=== PATIENT | male | born 1950 | race Caucasian/White ===

== ENCOUNTER 2017-01-24 17:04 | Emergency (ER) | payer MEDICARE, OTHER ==
[~2017-01-24] VITALS: Ht 172.7 cm; Wt 72.0 kg
[~2017-01-24 17:04] MED LIST: FEXO60TA PO; IMIT50TA PO; NAPR500 PO; PRED20 PO; PROT40TA PO; SAWPALMETTO; SUCR1TAB6 PO; [UNRECOGNIZED DRUG - OTHER]
[2017-01-24 17:12] VITALS: BP 145/90; PULSE 62; RESP 16; TEMP 97.7; O2SAT 97
[2017-01-24] MEDS ORDERED: OXYMETAZOLINE HCL 0.05% 15 ML NASAL SPRAY NASAL ONE (17:30)
--- NOTE | 2017-01-24 17:36 | PD ---
HPI Chief Complaint: Nosebleed Time Seen by Provider: 17:21 Travel History International Travel<30 days: No Contact w/Intl Traveler<30days: No Traveled to known affect area: No History of Present Illness HPI Patient is a 66-year-old male who comes in with a nosebleed. He had sinus surgery performed yesterday, and says he was fine until noon today when he started bleeding. He says he blew his nose and not swollen he started to bleed. He says it was a small amount of blood, but it would not stop. He denies feeling any blood in the back of his throat. He denies any difficulty breathing. He denies any other trauma to his nose. PFSH Past Medical History Diminished Hearing: No GERD: Yes Headaches: Yes Migraines: Yes Past Surgical History Genitourinary Surgery: Yes (STENT KIDNEY) Social History Alcohol Use: No Tobacco Use: Yes (07/07 PPD) Substance Use: No Allergies-Medications (Allergen,Severity, Reaction): Coded Allergies: No Known Allergies (Verified , 01/24/17) Reported Meds & Prescriptions Reported Meds & Active Scripts Active Deltasone (Prednisone) 20 Mg Tab 20 Mg PO BID Reported Aspirin Low Dose (Aspirin) 81 Mg Chew 81 Mg CHEW DAILY Methylprednisolone Dosepak (Methylprednisolone) 4 Dspk 4 Mg PO DIRECTED Per Pharmacist Direction Cialis (Tadalafil) 2.5 Mg Tab 2.5 Mg PO DAILY Do not exceed 1 dose/day. Lansoprazole 30 Mg Capdr 30 Mg PO DAILY Allergy Relief (Loratadine) 10 Mg Tab 10 Mg PO DAILY Naproxen 500 Mg Tab 500 Mg PO BID Carafate (Sucralfate) 1 Gm Tab 1 Gm PO TID On empty stomach Sumatriptan (Sumatriptan Succinate) 50 Mg Tab 50 Mg PO ONCE PRN If a satisfactory response has not been obtained at 2 hours, a second dose may be administered Beconase Aq Nasal (Beclomethasone Dipropionate) 42 Mcg/[facility] Susp 1 [facility] NASAL BID To each nostril. Ventolin Hfa 18 GM Inh (Albuterol Sulfate) 90 Mcg/Act Aer 2 Puff INH Q4-6H PRN [[place]] 0 [Sawpalmetto] 0 Carafate (Sucralfate) 1 Gm Tab 1 Gm PO DIRECTED Protonix (Pantoprazole Sodium) 40 Mg Tabdr 40 Mg PO BID Justyna (Fexofenadine HCl) 60 Mg Tab 60 Mg PO BID Imitrex (Sumatriptan Succinate) 50 Mg Tab 50 Mg PO DIRECTED PRN Naprosyn (Naproxen) 500 Mg Tab 500 Mg PO DAILY Review of Systems General / Constitutional: No: Fever, Chills Eyes: No: Blurred Vision HENT: Positive: Nosebleed, No: Headaches, Lightheadedness Cardiovascular: No: Chest Pain or Discomfort Respiratory: No: Shortness of Breath Gastrointestinal: No: Nausea, Vomiting Skin: No Change in Pigmentation Neurologic: No: Weakness, Dizziness Physical Exam Narrative GENERAL: Awake and alert, in no acute distress. SKIN: Focused skin assessment warm/dry. HEAD: Atraumatic. Normocephalic. EYES: Pupils equal and round. No scleral icterus. ENT: Mucous membranes pink and moist. Slow bleeding from the medial side of the left knee nostril, anteriorly. NECK: Trachea midline. No JVD. CARDIOVASCULAR: Regular rate and rhythm. No murmur appreciated. RESPIRATORY: No accessory muscle use. Clear to auscultation. Breath sounds equal bilaterally. NEUROLOGICAL: Awake and alert. No obvious cranial nerve deficits. Motor grossly within normal limits. Normal speech. Data Data Last Documented VS Vital Signs Date Time Temp Pulse Resp B/P Pulse Ox O2 Delivery O2 Flow Rate FiO2 01/24/17 19:00 60 16 160/95 98 Room Air 01/24/17 17:12 97.7 Orders Oxymetazoline 0.05% R[facility]ad [facility] (Afrin 0.0 (01/24/17 17:30) MDM Medical Decision Making Medical Screen Exam Complete: Yes Emergency Medical Condition: Yes Medical Record Reviewed: Yes Differential Diagnosis Nose bleed versus surgical complication versus nasal trauma Narrative Course Patient is a 66-year-old male comes in complaining of a nosebleed. Exam shows slow bleeding from the anterior portion of the left nostril. Direct pressure applied. Given Afrin. Observed until bleeding has stopped. Advised follow-up with his surgeon. Advised not to blow his nose for at least 24 hours. Advised what to do if it starts bleeding again. Advised to return as needed for any worsening symptoms. Diagnosis Primary Impression: Nasal bleeding Patient Instructions: General Instructions, Nosebleed (ED) Additional Instructions: Do not blow your nose for at least 24 hours. Follow-up with your surgeon. If you nose starts bleeding again, apply ice and direct pressure. Return as needed for any worsening symptoms. Disposition: 01 DISCHARGE HOME Condition: Stable Jahaira Holguin MD Jan 24, 2017 17:35
[2017-01-24] MEDS ORDERED: CIAL2.5T PO (17:45)
[2017-01-24] MEDS ORDERED: ASPI81CH37 CHEW (17:45)
[2017-01-24] MEDS ORDERED: CARA1TAB6 PO (17:45)
[2017-01-24] MEDS ORDERED: BECL.042%I NASAL (17:45)
[2017-01-24] MEDS ORDERED: METH4PAK PO (17:45)
[2017-01-24] MEDS ORDERED: NAPR500T PO (17:45)
[2017-01-24] MEDS ORDERED: ALLE10TA PO (17:45)
[2017-01-24] MEDS ORDERED: SUMA50TA2 PO (17:45)
[2017-01-24] MEDS ORDERED: LANS30CA PO (17:45)
[2017-01-24] MEDS ORDERED: VENTAER INH (17:45)
[2017-01-24 19:00] VITALS: BP 160/95; PULSE 60; RESP 16; O2SAT 98
[2017-01-24 19:38] VITALS: BP 151/88
== END 2017-01-24 19:40 | disposition home or self-care (01) ==
LOC: PHED 17:04
DX: R04.0 Epistaxis (principal); K21.9 Gastro-esophageal reflux disease without esophagitis; F17.210 Nicotine dependence, cigarettes, uncomplicated; Z79.82 Long term (current) use of aspirin
CPT/HCPCS: 99282

== ENCOUNTER → 2017-09-24 | Outpatient (CLI) | payer MEDICARE ==
[~2017-09-24] MED LIST changes: +ASPI81CH6 CHEW; +BECL.042%I NASAL; +CARA1TAB6 PO; +CIAL2.5T PO; +LANS30CA PO; +LORA-650 PO; +METH4PAK PO; +NAPR500T2 PO; +SUMA50TA2 PO; +VENTAER INH
== END ==
LOC: HRSP 10:40
PROVIDERS: ATTEND Specialist
DX: J44.9 Chronic obstructive pulmonary disease, unspecified (principal)
CPT/HCPCS: 94060; 94726; 94729